=== PATIENT | male | born 1990 | race Caucasian/White ===

== ENCOUNTER 2024-07-10 15:37 | Emergency (ER) | payer OTHER, SELFPAY ==
[2024-07-10 15:55] VITALS: BP 142/87; PULSE 92; RESP 17; TEMP 37; O2SAT 99; BMI 19.3
--- NOTE | 2024-07-10 17:29 | CTR_ITS ---
PROCEDURE INFORMATION: Exam: CT Neck With Contrast Exam date and time: 07/10/2024 6:50 PM Age: 33 years old Clinical indication: Dysphagia / difficulty swallowing and mass, lump, or swelling in neck; Bilateral; Additional info: Neck mass, probable abscess TECHNIQUE: Imaging protocol: Computed tomography of the neck with contrast. Radiation optimization: All CT scans at this facility use at least one of these dose optimization techniques: automated exposure control; mA and/or kV adjustment per patient size (includes targeted exams where dose is matched to clinical indication); or iterative reconstruction. Contrast material: OMNIPAQUE 350; Contrast volume: 80 ml; Contrast route: INTRAVENOUS (IV); COMPARISON: No relevant prior studies available. RADIATION DOSE METRICS: Total DLP (mGy-cm): 204.24 FINDINGS: Salivary glands: Normal. Glands are normal in size. Oral cavity: Normal. Teeth: Severe dental disease with multiple dental caries. Periapical infection involving the lower right 1st molar. Missing lower left 1st molar. Pharynx: Unremarkable. No significant tonsillar enlargement. Prevertebral and retropharyngeal spaces: Unremarkable. Larynx: Unremarkable. Epiglottis is normal. Thyroid: Normal. No enlarged or calcified nodules. Trachea: Visualized trachea is unremarkable. Lungs: Unremarkable as visualized. Lymph nodes: Multiple prominent submandibular and upper carotid chain lymph nodes, which are most likely reactive. Bones/joints: Mild spondylitic and discogenic degenerative changes at C5-C6. No fracture or subluxation. Soft tissues: Irregular shaped fluid collection with multiple gas bubbles along the medial aspect of the left mandible and extending into the left sublingual space. In total, this covers an area measuring approximately 2.3 x 3.1 x 4.4 cm. Subcutaneous soft tissue edema and skin thickening in the submandibular region. Mild thickening of the left platysma muscle inferiorly. CT/CT neck w con* [id number] IMPRESSION: 1. Left sublingual abscess containing fluid and gas, and extending along the medial aspect of the left mandible. 2. Dental disease. 3. Prominent submandibular and carotid chain lymph nodes are most likely reactive.
[2024-07-10 17:30] VITALS: BP 146/99; PULSE 91; RESP 16; O2SAT 99
--- NOTE | 2024-07-10 17:31 | ED_ITS ---
HPI - Skin/Abscess/Foreign Bdy 2 General: Chief complaint: Skin/Abscess/Foreign Body Stated complaint: throat swollen and sore Time Seen by Provider: 07/10/24 17:22 History of Present Illness: 33-year-old male patient comes in today with some swelling to the submandibular area. Patient reports having a dental pain to the left lower jaw where he has a bad molar. Patient was seen last night and given a dose of ceftriaxone and started on amoxicillin. Today when patient woke up he had increased swelling and more tenderness to his submandibular area. Patient reports some mild discomfort with swallowing. Patient reports tenderness to the area of swelling. Related Data Previous Rx's Medication Instructions Recorded clindamycin HCl 300 mg capsule 600 mg (2 x 300 mg) PO TID 7 days 07/10/24 #42 caps Allergies Allergy/AdvReac Type Severity Reaction Status Date / Time No Known Allergies Allergy Verified 07/10/24 16:00 Review of Systems 2 General: Reports: 10 or more systems reviewed and unremarkable except in HPI and below Physical Exam 2 Const: COMMON NORMALS: alert HENMT: COMMON NORMALS: normocephalic HEAD & SCALP: normocephalic THROAT: posterior oropharynx normal OTHER: Mild sublingual swelling. Neck/C-Spine: COMMON NORMALS: full ROM OTHER: Submandibular neck is swollen and tender with some redness. Resp: COMMON NORMALS: normal respiratory effort Cardio: COMMON NORMALS: regular rate RATE: regular rate GI: COMMON NORMALS: non-tender Extremity: COMMON NORMALS: normal to inspection Neuro: SENSORIUM/ORIENTATION: Yes alert Skin: NARRATIVE SKIN EXAM: Redness to the submandibular neck Course 2 Vital Signs: Vital signs: Vital Signs Temperature 98.6 F 07/10/24 15:55 Pulse Rate 100 07/10/24 18:00 Respiratory Rate 16 07/10/24 18:00 Blood Pressure 119/84 07/10/24 18:00 Pulse Oximetry 97 07/10/24 18:00 Oxygen Delivery Me thod Room Air 07/10/24 18:00 MDM - Skin/Abscess/Foreign Bdy Medicial Decision Making Patient comes in today for complaints of sore throat, difficulty swallowing, and swelling to the submandibular neck. Patient also reports symptoms dental pain. Vital signs are normal. Patient is managing secretions well. Patient does have some swelling over the submandibular neck. Differential diagnosis includes but not limited to periapical abscess, lymphadenitis, skin abscess, sialoadenitis, retropharyngeal abscess. CT noted a sublingual abscess. No airway or pharyngeal involvement. White count was 18,000. Posterior pharynx is normal and symmetrical. Patient is managing secretions well. Patient was given 600 mg of clindamycin IV. Patient will be changed from amoxicillin to clindamycin 600 mg 3 times a day for 7 days. Patient was also given a dose of Toradol and dexamethasone IV. Patient was recommended to follow-up with ENT for further evaluation and consideration of drainage of abscess. Most likely though this is a dental abscess and be followed up by dentist. Patient reported understanding agreed to plan. Lab Data 07/10/24 17:35 07/10/24 17:[address] 07/10/24 17:29 IMPRESSION: 1. Left sublingual abscess containing fluid and gas, and extending along the medial aspect of the left mandible. 2. Dental disease. 3. Prominent submandibular and carotid chain lymph nodes are most likely reactive. Laboratory Results WBC 17.90 10^3/uL (3.29-11.43) H 07/10/24 17:35 RBC 4.19 10^6/uL (3.85-5.65) 07/10/24 17:35 Hgb 13.20 g/dL (11.27-16.99) 07/10/24 17:35 Hct 38.7 % (37-53) 07/10/24 17:35 MCV 92.4 fl (82-101) 07/10/24 17:35 MCH 31.5 pg (27-33) 07/10/24 17:35 MCHC 34.1 g/dL (30-55) 07/10/24 17:35 RDW 12.5 % (12.1-15.1) 07/10/24 17:35 Plt Count 215 10^3/cmm (157-399) 07/10/24 17:35 MPV 10.7 fL (7.4-10.4) H 07/10/24 17:35 Neut % (Auto) 86.6 % 07/10/24 17:35 Lymph % (Auto) 6.6 % 07/10/24 17:35 [place] % (Auto) 5.7 % 07/10/24 17:35 Eos % (Auto) 0.1 % 07/10/24 17:35 Baso % (Auto) 0.2 % 07/10/24 17:35 Neut # (Auto) 15.51 10^3/uL (1.8-7.7) H 07/10/24 17:35 Lymph # (Auto) 1.2 10^3/uL (0.8-4.8) 07/10/24 17:35 [place] # (Auto) 1.0 10^3/uL (0.2-0.9) H 07/10/24 17:35 Eos # (Auto) 0.0 10^3/uL (0.0-0.8) 07/10/24 17:35 Baso # (Auto) 0.0 10^3/uL (0.0-0.1) 07/10/24 17:35 Nucleated RBC % (auto) 0 % 07/10/24 17:35 Nucleated RBCs # 0.0 /100WBC 07/10/24 17:35 Sodium 136 mmol/L (136-145) 07/10/24 17:35 Potassium 4.0 mmol/L (3.5-5.1) 07/10/24 17:35 Chloride 98 mmol/L (98-107) 07/10/24 17:35 Carbon Dioxide 27 mmol/L (22-29) 07/10/24 17:35 Anion Gap 15.0 (5-19) 07/10/24 17:35 BUN 16 mg/dL (6-20) 07/10/24 17:35 Creatinine 0.6 mg/dL (0.7-1.2) L 07/10/24 17:35 GFR Calculation 153.3 mL/min (90-130) H 07/10/24 17:35 Glucose 104 mg/dL (65-115) 07/10/24 17:35 Calculated Osmolality 283 mOsm/kg (285-295) L 07/10/24 17:35 Lactic Acid 0.8 mmol/L (0.5-2.2) 07/10/24 17:35 Calcium 9.0 mg/dL (8.5-10.5) 07/10/24 17:35 Total Bilirubin 0.6 mg/dL (0.15-1.2) 07/10/24 17:35 AST 31 U/L (0-40) 07/10/24 17:35 ALT 19 U/L (0-41) 07/10/24 17:35 Alkaline Phosphatase 69 U/L (40-130) 07/10/24 17:35 Total Protein 6.6 g/dL (6.6-8.7) 07/10/24 17:35 Albumin 4.1 g/dL (3.5-5.2) 07/10/24 17:35 Globulin 2.5 g/dL (1.3-4.6) 07/10/24 17:35 All radiology interpretation(s) finalized by discharge Discharge Plan Discharge Patient Disposition: Home Clinical Impression: Sublingual abscess Condition: Stable Prescriptions: New clindamycin HCl 300 mg capsule 600 mg PO TID 7 Days Qty: 42 0RF Discharge Orders: Discharge ED (Routine); Ordered 07/10/24 Ordered By: Danielito Poole Discharge Diet: Usual diet Discharge Activity: Increase activity as tolerated Patient Instructions: Dental Abscess (ED) Activity Restrictions/Additional Instructions: Stop amoxicillin. Take clindamycin 600 mg 3 times a day for the next 7 days. Case management will contact you regarding follow-up with manager research development for further evaluation and treatment. Continue with plan to follow- up with dentist otherwise. Return to ER for worsening symptoms such as inability to manage secretions or difficulty with respirations. Coding Level of Care Code ED Wagon Person for Sheng Glass
[2024-07-10] MEDS: ketorolac 30 mg/mL INJ 15 MG IVP (17:40)
[2024-07-10] MEDS: dexamethasone 10 mg/mL INJ IVP (17:40)
[2024-07-10] MEDS: clindamycin 600 MG/50 ML PREMIX 100 MG IV (17:43)
[2024-07-10] MEDS: iohexol 350 mg/mL 500 mL Btl (per mL) IV (17:53)
[2024-07-10 18:00] VITALS: BP 119/84; PULSE 100; RESP 16; O2SAT 97
[2024-07-10 18:04] LABS: Basophils % 0.2 %; Eosinophils % 0.1 %; Hematocrit 38.7 % (37-53); Lymphocytes # 1.2 10^3/uL (0.8-4.8); Lymphocytes % 6.6 %; Mean Corpuscular HGB Conc 34.1 g/dL (30-55); Mean Corpuscular Hemoglobin 31.5 pg (27-33); Mean Corpuscular Volume 92.4 fl (82-101); Mean Platelet Volume 10.7 fL (7.4-10.4); Monocytes % 5.7 %; Neutrophils # 15.51 10^3/uL (1.8-7.7); Neutrophils % 86.6 %; Nucleated Red Blood Cells % 0 %; Platelet Count 215 10^3/cmm (157-399); Red Blood Count 4.19 10^6/uL (3.85-5.65); Red Cell Distribution Width 12.5 % (12.1-15.1)
[2024-07-10 18:22] LABS: Alanine Aminotransferase 19 U/L (0-41); Albumin Level 4.1 g/dL (3.5-5.2); Alkaline Phosphatase 69 U/L (40-130); Aspartate Amino Transferase 31 U/L (0-40); Blood Urea Nitrogen 16 mg/dL (6-20); Carbon Dioxide 27 mmol/L (22-29); Chloride 98 mmol/L (98-107); Creatinine Clr Calc Pharmacy 145.9607; Globulin 2.5 g/dL (1.3-4.6); Glomerular Filtration Rate 153.3 mL/min (90-130); Glucose 104 mg/dL (65-115); Osmolality Calculated 283 mOsm/kg (285-295); Sodium 136 mmol/L (136-145); Total Bilirubin 0.6 mg/dL (0.15-1.2); Total Protein 6.6 g/dL (6.6-8.7)
[2024-07-10 18:23] LABS: Lactic Sepsis W/Reflex 0.8 mmol/L (0.5-2.2)
[2024-07-10 19:14] VITALS: BP 137/91; PULSE 104; RESP 16; O2SAT 96
--- NOTE | 2024-07-13 15:14 | DCPLANNER ---
Emily from [facility] unable to reach patient by phone- will mail letter
== END 2024-07-10 19:14 | disposition home or self-care (01) ==
PROVIDERS: Emergency Provider Nurse Practitioner Family
DX: K12.2 Cellulitis and abscess of mouth (principal)
CPT/HCPCS: 36415; 70491; 80053; 83605; 85025; 87040; 96374; 96375; 99285; J1100; J1885; J3490